=== PATIENT | male | born 1960 | race Caucasian/White ===

== ENCOUNTER 2018-07-22 20:14 | Emergency (ER) | payer MEDICARE, OTHER ==
[~2018-07-22] VITALS: Ht 177.8 cm; Wt 131.5 kg
[~2018-07-22 20:14] MED LIST: ACET500; ALBU90OI6 INH; AMOCLA875; CEPH500 PO; CLOT1TC; CYCL10 PO; DESCOVY 200-251 EACH PO; GABA300 PO; GABA600 PO; IBUP600 PO; INSULANPEN SC; LISI20; LISI5 PO; METF500C; METF500C PO; METO25ER PO; METO50ER PO; NICO14TP; NICO7; Novolog100 UNIT/2; Novolog100 UNIT/2 SC; OXYB5 PO; OXYC5 PO; PARO20; PREZCOBIX 8001 EACH PO; Pyridium200 MG PO; TIVICAY50 MG PO; Tobrex5 ML; Tylenol325 MG PO; VENL150ER PO; [UNRECOGNIZED DRUG - CODE]
== END 2018-07-23 00:54 | disposition home or self-care (01) ==
LOC: ER 20:14
DX: S06.9X1A Unspecified intracranial injury with loss of consciousness of 30 minutes or less, initial encounter (principal); S40.011A Contusion of right shoulder, initial encounter; Z89.512 Acquired absence of left leg below knee; W05.0XXA Fall from non-moving wheelchair, initial encounter; Z88.8 Allergy status to other drugs, medicaments and biological substances; Z79.899 Other long term (current) drug therapy; Z79.4 Long term (current) use of insulin; E11.9 Type 2 diabetes mellitus without complications; B20 Human immunodeficiency virus [HIV] disease; F31.9 Bipolar disorder, unspecified; F17.210 Nicotine dependence, cigarettes, uncomplicated
CPT/HCPCS: 36415; 70450; 71046; 72125; 73030; 96374; 99284-25; J3010

== ENCOUNTER 2018-08-13 07:01 | Emergency (ER) | payer MEDICARE, OTHER ==
[~2018-08-13] VITALS: Ht 180.3 cm; Wt 108.9 kg
[~2018-08-13 07:01] MED LIST changes: +EXTRA STRENGTH500 MG PO; -Tylenol325 MG PO
[2018-08-13 08:21] LABS: Bilirubin, Urine Neg (Neg); Blood, Urine Neg (Neg); Glucose Qualitative, Urine Neg (Neg); Ketones, Urine Neg (Neg); Leukocyte Esterase, Urine Neg (Neg); Nitrite, Urine Neg (Neg); Protein, Urine Neg (Neg); Specific Gravity, Urine 1.015 (1.003-1.022); Urobilinogen, Urine NORM (Normal)
[2018-08-13 08:36] LABS: U Amphetamine Screen Not Detected; U Barbituate Screen Not Detected; U Benzodiazapine Screen Not Detected; U Buprenorphine Screen Not Detected; U Cannabinoids Screen DETECTED; U Cocaine Screen Not Detected; U Methadone Screen Not Detected; U Methamphetamine Screen DETECTED; U Opiates Screen Not Detected; U Oxycodone Screen DETECTED; U Phencyclidine Screen Not Detected; U Propoxyphene Screen Not Detected
[2018-08-13 08:36] LABS: Anion Gap 7 mmol/L (6-16); Blood Urea Nitrogen 14 mg/dL (8-24); Bun/Creatinine Ratio 28.4 (12.0-20.0); CO2, Blood 28 mmol/L (21-32); Calcium, Blood 8.6 mg/dL (8.5-10.1); Chloride, Blood 103 mmol/L (98-108); Creatinine, Blood 0.49 mg/dL (0.60-1.20); Glomerular Filtration Rate >60 (60-); Glucose, Blood 176 mg/dL (70-99); Potassium, Blood 5.2 mmol/L (3.5-5.5); Sodium, Blood 138 mmol/L (136-145)
[2018-08-13 08:57] LABS: Appearance, Urine Clear (Clear); Color, Urine Yellow (P-Yellow)
[2018-08-13 09:09] LABS: BASOPHILS ABSOLUTE AUTO 0.05 K/mm3 (0.00-0.23); BASOPHILS PERCENT AUTO 1 % (0-2); EOSINOPHILS ABSOLUTE AUTO 0.23 K/mm3 (0.00-0.68); EOSINOPHILS PERCENT AUTO 3 % (0-6); Hematocrit 41.8 % (37.0-53.0); Hemoglobin 13.4 g/dL (13.5-17.5); IMMATURE GRAN ABSOLUTE AUTO 0.08 K/mm3 (0.00-0.10); IMMATURE GRAN PERCENT AUTO 1 % (0-1); LYMPHOCYTES ABSOLUTE AUTO 0.77 K/mm3 (0.84-5.20); LYMPHOCYTES PERCENT AUTO 11 % (21-46); MONOCYTES ABSOLUTE AUTO 0.55 K/mm3 (0.16-1.47); MONOCYTES PERCENT AUTO 8 % (4-13); Mean Corpuscular HGB Conc 32.1 g/dL (31.5-36.5); Mean Corpuscular Volume 100 fL (80-100); Mean Platelet Volume 9.3 fL (9.1-12.4); NEUTROPHILS ABSOLUTE AUTO 5.58 K/mm3 (1.96-9.15); NEUTROPHILS PERCENT AUTO 77 % (41-73); Platelet Count 204 K/mm3 (150-400); RDW Coefficient Variation 12.2 % (11.7-14.2); RDW Standard Deviation 45.1 fL (35.1-46.3); Red Blood Cell Count 4.19 M/mm3 (4.30-5.90); White Blood Cell Count 7.26 K/mm3 (4.00-11.30)
[2018-08-13] MEDS ORDERED: XARELTO15 MG PO (09:28)
[2018-08-14] MEDS ORDERED: LORA1SY PO (07:35)
[2018-08-14] MEDS ORDERED: NICO21TP (07:36)
[2018-08-14] MEDS ORDERED: NICO2 PO (07:37)
[2018-08-14] MEDS ORDERED: LOPE2C PO (07:37)
[2018-08-14] MEDS ORDERED: XARELTO20 MG PO (23:32)
[2018-08-14] MEDS ORDERED: IBUP600 PO (23:38)
== END 2018-08-13 11:47 | disposition home or self-care (01) ==
LOC: ER 07:01
PROVIDERS: Emergency Medicine
DX: I82.432 Acute embolism and thrombosis of left popliteal vein (principal); F15.10 Other stimulant abuse, uncomplicated; Z89.512 Acquired absence of left leg below knee; E11.22 Type 2 diabetes mellitus with diabetic chronic kidney disease; I12.9 Hypertensive chronic kidney disease with stage 1 through stage 4 chronic kidney disease, or unspecified chronic kidney disease; N18.9 Chronic kidney disease, unspecified; Z88.8 Allergy status to other drugs, medicaments and biological substances; Z79.899 Other long term (current) drug therapy; Z79.4 Long term (current) use of insulin; B20 Human immunodeficiency virus [HIV] disease; F31.9 Bipolar disorder, unspecified
CPT/HCPCS: 36415; 71045; 80048; 81003; 85025; 93005; 93010; 93971; 96361; 96374; 99285-25; G0480; J1885; J7030

== ENCOUNTER 2018-08-14 07:16 | Emergency (ER) | payer MEDICARE, OTHER ==
[~2018-08-14] VITALS: Ht 180.3 cm; Wt 127.0 kg
[~2018-08-14 07:16] MED LIST changes: +XARELTO15 MG PO
[2018-08-14] MEDS ORDERED: LORA1SY PO (07:35)
[2018-08-14] MEDS ORDERED: NICO21TP (07:36)
[2018-08-14] MEDS ORDERED: LOPE2C PO (07:37)
[2018-08-14] MEDS ORDERED: NICO2 PO (07:37)
[2018-08-14] MEDS ORDERED: XARELTO20 MG PO (23:32)
[2018-08-14] MEDS ORDERED: IBUP600 PO (23:38)
== END 2018-08-14 11:41 | disposition home or self-care (01) ==
LOC: ER 07:16
DX: S09.90XA Unspecified injury of head, initial encounter (principal); M54.2 Cervicalgia; M54.9 Dorsalgia, unspecified; E11.9 Type 2 diabetes mellitus without complications; I10 Essential (primary) hypertension; F31.9 Bipolar disorder, unspecified; Z21 Asymptomatic human immunodeficiency virus [HIV] infection status; Z89.512 Acquired absence of left leg below knee; Z79.4 Long term (current) use of insulin; Z79.899 Other long term (current) drug therapy; W06.XXXA Fall from bed, initial encounter
CPT/HCPCS: 70450; 72070; 72125; 99284-25

== ENCOUNTER 2018-08-14 15:38 | Inpatient (IN) | payer MEDICARE, OTHER ==
[~2018-08-14] VITALS: Ht 180.3 cm; Wt 129.8 kg
[~2018-08-14 15:38] MED LIST changes: +LOPE2C PO; +LORA1SY PO; +NICO2 PO; +NICO21TP
[2018-08-14 17:25] LABS: PCO2 Arterial 38.2 mmHg (35-45); PO2 Arterial 53.3 mmHg (80-100); pH Blood Arterial 7.49 (7.35-7.45)
[2018-08-14 17:37] LABS: Influenza A Negative (NEGATIVE); Influenza B Negative (NEGATIVE)
[2018-08-14 17:46] LABS: BASOPHILS ABSOLUTE AUTO 0.04 K/mm3 (0.00-0.23); BASOPHILS PERCENT AUTO 0 % (0-2); EOSINOPHILS ABSOLUTE AUTO 0.01 K/mm3 (0.00-0.68); EOSINOPHILS PERCENT AUTO 0 % (0-6); Hematocrit 46.2 % (37.0-53.0); Hemoglobin 15.1 g/dL (13.5-17.5); IMMATURE GRAN ABSOLUTE AUTO 0.07 K/mm3 (0.00-0.10); IMMATURE GRAN PERCENT AUTO 1 % (0-1); LYMPHOCYTES ABSOLUTE AUTO 0.51 K/mm3 (0.84-5.20); LYMPHOCYTES PERCENT AUTO 6 % (21-46); MONOCYTES ABSOLUTE AUTO 0.47 K/mm3 (0.16-1.47); MONOCYTES PERCENT AUTO 5 % (4-13); Mean Corpuscular HGB 32.1 pg (26.0-34.0); Mean Corpuscular HGB Conc 32.7 g/dL (31.5-36.5); Mean Corpuscular Volume 98 fL (80-100); Mean Platelet Volume 9.4 fL (9.1-12.4); NEUTROPHILS ABSOLUTE AUTO 8.13 K/mm3 (1.96-9.15); NEUTROPHILS PERCENT AUTO 88 % (41-73); Platelet Count 222 K/mm3 (150-400); RDW Coefficient Variation 12.2 % (11.7-14.2); RDW Standard Deviation 44.3 fL (35.1-46.3); White Blood Cell Count 9.23 K/mm3 (4.00-11.30)
[2018-08-14 18:10] LABS: Alanine Aminotransfer (ALT/SGP 45 U/L (12-78); Albumin, Blood 3.5 g/dL (3.4-5.0); Albumin/Globulin Ratio 0.8 (0.8-1.8); Alk Phos 88 U/L (50-136); Anion Gap 9 mmol/L (6-16); Aspartate Aminotrans (AST/SGOT 30 U/L (12-37); Bilirubin, Total 0.3 mg/dL (0.1-1.0); Blood Urea Nitrogen 8 mg/dL (8-24); Bun/Creatinine Ratio 14.6 (12.0-20.0); CO2, Blood 24 mmol/L (21-32); Calcium, Blood 8.7 mg/dL (8.5-10.1); Chloride, Blood 100 mmol/L (98-108); Creatinine, Blood 0.55 mg/dL (0.60-1.20); Globulin, Blood 4.6 g/dL (2.2-4.0); Glomerular Filtration Rate >60 (60-); Glucose, Blood 170 mg/dL (70-99); Potassium, Blood 4.1 mmol/L (3.5-5.5); Sodium, Blood 133 mmol/L (136-145); Total Protein, Blood 8.1 g/dL (6.4-8.2); Troponin I <0.015 ng/mL (0.000-0.040)
--- NOTE | 2018-08-14 20:45 | NUR ---
ADMIT RECEIVED FROM ER VIA [facility]. AWAKE AND ALERT. PT IS ABLE TO MOVE SELF FROM GURNEY TO BED WITHOUT DIFFICULTY. DYSPNEA NOTED WITH EXERTION. O2 @ 4LNC. OCCASIONAL NPC. C/O CONGESTED NOSE D/T OXYGEN. PT C/O 8/10 HEADACHE AND LEG PAIN AND IS REQUESTING OXYCODONE. INFORMED PT THAT OXYCODONE WAS NOT ORDERED BY MD AND HE IS AGREEABLE TO TRY MOTRIN FOR HIS PAIN. MONITOR SHOWS ST, RATE 110-120. LBKA AMPUTATION NOTED. RIGHT GREAT TOE AMPUTATION NOTED. ABDOMEN MODERATELY DISTENDED AND FIRM- PT STATES THIS IS NORMAL FOR HIM. DENIES NAUSEA. SKIN IS REDDENED/FLUSHED T/O. PLAN IS TO PLACE A #18 IV FOR NEEDED PE STUDY. SEE ADMIT ASSESSMENT FOR FULL ASSESSMENT.
[2018-08-14] MEDS ORDERED: XARELTO20 MG PO (23:32)
[2018-08-14] MEDS ORDERED: IBUP600 PO (23:38)
--- NOTE | 2018-08-15 05:52 | NUR ---
SHIFT SUMMARY NO ACUTE CHANGES DURING NOC. SLEPT INTERMITTENTLY. ROUSES TO STIMULI. CONTINUES TO C/O HEADACHE AND LEG PAIN. STATES "MOTRIN HELPED A LITTLE" BUT STILL REQUESTING OXYCODONE. REMAINS ON 4LNC. RESPIRATIONS EVEN AND UNLABORED AT REST. VOIDING WITHOUT DIFFICULTY. NO AM LABS ORDERED. WILL REPORT TO DAY SHIFT RN WHEN AVAILABLE.
--- NOTE | 2018-08-15 08:00 | NUR ---
PT LAYING IN BED ON HIS SIDE, WAKES EASILY, A/OX3, COOPERATIVE WITH CARE, FOLLOWS COMMANDS WELL. STATES HE DOESN'T FEEL GOOD THIS AM, BUT CAN'T REALLY SAY WHATS GOING ON, HE SAYS HIS LOW BACK HURTS AND NEEDS PAIN MEDS, LUNGS HAVE EXP WHEEZING T/O, HAS A HARSH COUGH, IS CURRENTLY ON 4 LITERS 02 BUT HAS IT ON HIS FORHEAD, BECOMES SOB WITH ANY ACTIVITY, HRR, TELE IN PLACE SHOWS ST PER MONITOR, SEE STRIP, NO EDEMA NOTED, PPP+2 ON RIGHT SIDE, BKA TO LEFT SIDE, IV SITES TO RAC AND RWRIST, SITES ARE CLEAR AND PATENT, BTX4, ABD LARGE SOFT NONTENDER, VOIDS VIA URINAL, IS HAVING SOME LOOSE STOOLS, AND SOME INCONT OF STOOL, SKIN C/W/D, SUSHMA DSOUZA, CALL LIGHT IN REACH.
[2018-08-15 09:14] LABS: Adenovirus F 40/41 Not Detected (NOT DETECT); Astrovirus Not Detected (NOT DETECT); Campylobacter Sp Not Detected (NOT DETECT); Cryptosporidium Not Detected (NOT DETECT); Cyclospora Cayetanensis Not Detected (NOT DETECT); E. Coli O157 Not Detected (NOT DETECT); Entamoeba Histolytica Not Detected (NOT DETECT); Enteroaggregative E. coli-EAEC Not Detected (NOT DETECT); Enteropathogenic E. coli-EPEC Not Detected (NOT DETECT); Enterotoxigenic E. coli-ETEC Not Detected (NOT DETECT); Giardia Lamblia Not Detected (NOT DETECT); Norovirus GI/GII Not Detected (NOT DETECT); Plesiomonas Shigelloides Not Detected (NOT DETECT); Rotavirus A Not Detected (NOT DETECT); Salmonella Sp Not Detected (NOT DETECT); Sapovirus Not Detected (NOT DETECT); Shiga Toxin-prod E. coli-STEC Not Detected (NOT DETECT); Shigella/Enteroin E. coli-EIEC Not Detected (NOT DETECT); Vibrio Cholerae Not Detected (NOT DETECT); Vibrio Sp Not Detected (NOT DETECT); Yersinia Enterocolitica Not Detected (NOT DETECT)
--- NOTE | 2018-08-15 12:50 | NUR ---
PT AFFECT IS MUCH BETTER, B/P IS BETTER. PT HAS A HUGE APPETITE, NO OTHER COMPLAINTS OR NEEDS AT THIS TIME. CALL LIGHT IN REACH.
--- NOTE | 2018-08-15 13:00 | NUR ---
ASSUMED CARE AT 1300. INTRODUCED SELF TO PT.
--- NOTE | 2018-08-15 19:24 | NUR ---
PT PLEASANT TODAY. PAIN MOSTLY MANAGED WITH AVAIL MEDS. TALKED SOME ABOUT HIS PAST EMPLOY AT [employer] IN [place]. NO OTHER CONCERNS AT THIS TIME. BED IN LOW POSITION, CALL LITE IN REACH. CALLS APPROP
[2018-08-16 04:27] LABS: Anion Gap 7 mmol/L (6-16); Blood Urea Nitrogen 30 mg/dL (8-24); Bun/Creatinine Ratio 42.2 (12.0-20.0); CO2, Blood 30 mmol/L (21-32); Calcium, Blood 8.5 mg/dL (8.5-10.1); Chloride, Blood 98 mmol/L (98-108); Creatinine, Blood 0.71 mg/dL (0.60-1.20); Glomerular Filtration Rate >60 (60-); Glucose, Blood 259 mg/dL (70-99); Potassium, Blood 4.1 mmol/L (3.5-5.5); Sodium, Blood 135 mmol/L (136-145)
--- NOTE | 2018-08-16 06:00 | NUR ---
SHIFT SUMMARY PT A&O X4, CALM AND COOPERATIVE. PT STATES HEADACHE AND L LEG PAIN DURING NIGHT. PT REQUEST FOR PAIN MEDICATION PRIOR TO ADMINISTRATION TIME ALLOWANCE. PT THEN UPSET PAIN MED NOT GIVEN AT TIME OF ALLOWANCE BECAUSE PT WAS SLEEPING. MED GIVEN TO PT ONCE AWAKE. OTHERWISE SHIFT UNEVENTFUL. VSS. LUNG SOUNDS COARSE W/ EXP WHEEZE T/O. SPO2 > 92% ON 3.5L NC. MONITOR SHOWS NSR, HR 80-100. WILL CONTINUE TO MONITOR AND PROVIDE CARE UNTIL REPORT OFF TO DAY SHIFT RN.
--- NOTE | 2018-08-16 08:00 | NUR ---
PT LAYING IN BED EATING BREAKFAST WHILE LAYING, EXPLAINED MIGHT BE BETTER TO SIT UP, HE SAYS HE CAN EAT AND TAKE PO MEDS FINE LIKE HE IS. A/OX3, COOPERATIVE WITH CARE, IS IN BETTER MOOD THAN YESTERDAY AM. LUNGS HAVE EXP WHEEZING T/O, A BIT COURSE AND DIM IN BASES, RESP EVEN AND UNLABORED, OCC NONPRODUCTIVE COUGH, HE MAY BE SWALLOWING, IS CURRENTLY ON 3.5 LITERS 02 VIA N/C, HRR, TELE IN PLACE RUNNING SR TO ST PER MONITOR, SEE STRIP, TRACE EDEMA NOTED TO RIGHT FOOT, LEFT BKA WITH DRESSING ON STUMP, WILL CHANGE THAT TODAY, IV TO LEFT WRIST AND LEFT AC BOTH SITES ARE CLEAR AND PATENT, BTX4, ABD LARGE SOFT NONTENDER, WAS HAVING LOOSE STOOLS, SAMPLE WAS SENT, CAME BACK NEG, WAS STARTED ON SOME THINGS FOR IT, AND HE REPORTS IT HAS SLOWED, VOIDS VIA URINAL, SKIN C/W/D, EXCEPT WOUND TO STUMP NOTED ABOVE, MEET, ABLE TO STAND ON GOOD LEG TO TRANSFER, MOVES HIMSELF IN BED, SUSHMA, CALL LIGHT IN REACH.
--- NOTE | 2018-08-16 12:56 | NUR ---
pt glucose over 300, was treated with insulin as ordered, sleepy, b/p much lower than yesterday. no further needs at this time. call light in reach.
[2018-08-17 04:24] LABS: BASOPHILS ABSOLUTE AUTO 0.04 K/mm3 (0.00-0.23); BASOPHILS PERCENT AUTO 0 % (0-2); EOSINOPHILS ABSOLUTE AUTO 0.16 K/mm3 (0.00-0.68); EOSINOPHILS PERCENT AUTO 2 % (0-6); Hematocrit 45.2 % (37.0-53.0); Hemoglobin 14.5 g/dL (13.5-17.5); IMMATURE GRAN ABSOLUTE AUTO 0.11 K/mm3 (0.00-0.10); IMMATURE GRAN PERCENT AUTO 1 % (0-1); LYMPHOCYTES ABSOLUTE AUTO 1.37 K/mm3 (0.84-5.20); LYMPHOCYTES PERCENT AUTO 14 % (21-46); MONOCYTES ABSOLUTE AUTO 0.94 K/mm3 (0.16-1.47); MONOCYTES PERCENT AUTO 9 % (4-13); Mean Corpuscular HGB 31.8 pg (26.0-34.0); Mean Corpuscular HGB Conc 32.1 g/dL (31.5-36.5); Mean Corpuscular Volume 99 fL (80-100); Mean Platelet Volume 9.6 fL (9.1-12.4); NEUTROPHILS ABSOLUTE AUTO 7.44 K/mm3 (1.96-9.15); NEUTROPHILS PERCENT AUTO 74 % (41-73); Platelet Count 287 K/mm3 (150-400); RDW Coefficient Variation 12.2 % (11.7-14.2); RDW Standard Deviation 44.8 fL (35.1-46.3); Red Blood Cell Count 4.56 M/mm3 (4.30-5.90); White Blood Cell Count 10.06 K/mm3 (4.00-11.30)
[2018-08-17 04:44] LABS: Anion Gap 6 mmol/L (6-16); Blood Urea Nitrogen 33 mg/dL (8-24); Bun/Creatinine Ratio 50.7 (12.0-20.0); CO2, Blood 28 mmol/L (21-32); Calcium, Blood 8.8 mg/dL (8.5-10.1); Chloride, Blood 99 mmol/L (98-108); Creatinine, Blood 0.65 mg/dL (0.60-1.20); Glomerular Filtration Rate >60 (60-); Glucose, Blood 180 mg/dL (70-99); Potassium, Blood 4.4 mmol/L (3.5-5.5); Sodium, Blood 133 mmol/L (136-145)
--- NOTE | 2018-08-17 06:12 | NUR ---
SHIFT SUMMARY PT SLEEPING IN ROOM. WAKES EASILY W/ VERBAL. PT HAD NO ACUTE CHANGES T/O NIGHT. SLEPT WELL. RESP EVEN UNLABORED ON 3.5 L O2 SATS >92%. PT REQUESTED LOTS OF SNACKS AND FOOD AT START OF SHIFT. CBG WAS HIGH AT 306. PT WAS EDUCATED ON EFFECT OF SUGARY SNACKS ON HIGH BLOOD SUGAR. PT WAS UNINTERSTED IN EDUCATION BUT AGREED TO LOW SUGAR SNACKS AND WATER INSTEAD OF A MILKSHAKE. CALL LIGHT IN REACH.
--- NOTE | 2018-08-17 08:00 | NUR ---
pt laying in bed awake a/ox3, cooperative with care, follows commands well, states he doesn't feel good, but can't elaborate, states he has low back pain, lungs still have exp wheezing t/o, but seems less than yesterday, weaned 02 down to 1.5 liters, and is maintaining, resp even and unlabored, has occ nonproductive cough, hrr, tele in place running sr per monitor, see strip, no edema noted to rigth foot, left bka, iv to rac and right wrist, sites are clear and patent, btx4, abd large round soft nontender, voids without diff, via urinal, skin has very small sore to left stump, dressing in place, hector kwong call light in reach.
--- NOTE | 2018-08-17 12:46 | NUR ---
pt laying in bed, vs stable, he is on r/a at this time, sats 93-94%, wants a pain pill, rates pain in low back 02/12, this was given, no further changes or needs, call light in reach.
--- NOTE | 2018-08-17 13:15 | NUR ---
PT RESTING WATCHING TV. TALKATIVE. STATES PAIN IMPROVED. ORDERED SANDWICH PRIOR, WANTS TO KNOW WHERE IS. REORDERED
--- NOTE | 2018-08-17 18:16 | NUR ---
PT PLEASANT THIS AFT AND GAVIN. EXTRA FOOD ORDERED LUNCH AND DINNER. DISCUSSED HIGH CBG AND RELATIONSHIP WITH EXTRA FLOUR BASED FOOD INTAKE. ALSO REQUESTS FOR MULTIPLE JUICES. AND RELATIONSHIP WITH SUGARS. HE STATES UNDERSTANDING. PAIN MED GIVEN MIDDAY. STATES BROUGHT TO COMFORTABLE/TOLERABLE LEVEL. NO OTHER CONCERNS AT THIS TIME. BED IN LOW POSITION, CALL LITE IN REACH, CALLS APPROP
--- NOTE | 2018-08-18 06:07 | NUR ---
SHIFT SUMMARY PT ALERT AND ORIENTED. VS STABLE. O2 SATS HAVE REMAINED ABOVE 92% ON RA. PT DOES HAVE SOB WITH EXERTION. PT COMPLAINS OF CHRONIC PAIN IN HIS BACK AND LEGS. PAIN RELIEVED AFTER MEDICATION ADMINISTRATION. PT EDUCATED ABOUT DIABETIC DIET AND IMPORTANCE OF IMPROVING BLOOD SUGARS. PT NOT INTERESTED IN EDUCATION. PT ABLE TO TRANSFER TO [facility] WITH SBA NEEDED. NO OTHER CHANGES SINCE INITIAL ASSESSMENT. WILL CONTINUE TO MONITOR AND REPORT TO MEDICAL FLOOR RN. CALL LIGHT IN REACH. AWAITING TRANSFER.
[2018-08-18] MEDS ORDERED: AZIT250 PO (10:35)
[2018-08-18] MEDS ORDERED: PRED10 (10:36)
--- NOTE | 2018-08-18 15:24 | NUR ---
PLEASE SEND UP DINNER MENU. THANK YOU
--- NOTE | 2018-08-18 18:20 | NUR ---
SHIFT SUMMARY: NO ACUTE CHANGES TO REPORT THIS SHIFT. PT A&O; CALM AND COOPERATIVE WITH CARE. MEDICATED FOR PAIN PER EMAR. DISCHARGE TO [facility] ON SUNDAY, 08/19. WCTM.
--- NOTE | 2018-08-19 06:25 | NUR ---
SHIFT SUMMARY PT A&0X4. MEDICATED PAIN PER EMAR. SLEPT WELL T/O SHIFT. NO ACUTE CHANGES TO REPORT. WILL CONTINUE TO MONITOR.
--- NOTE | 2018-08-19 09:30 | NUR ---
PT PLEASANT A/O STATES SOME PAIN IN BACK AND LEG. MED PER EMAR. H/R REG, NO MURMER NOTED. NO TELE. LUNGS COARSE AND LITE EXP WHEEZES T/O. ON R/A. RESP EASY, UNLBORED. ABD LARGE FIRM, BT X4 PT STATES NORM ABD FOR HIM. LAST BM YEST. VOIDS PER URINAL. SBA TO BSC. L BKA. SMALL ABRASION ON STUMP. COVERED WITH MEPILEX, CDI.,BED IN LOW POSITION, CALL LITE IN REACH, CALLS APPROP AND REG.
--- NOTE | 2018-08-19 17:36 | NUR ---
d/c 1650 iv pulled intact. home meds for hiv handed to pt. going to [facility]. called report to bobo. 1730.
[2018-08-20] MEDS ORDERED: SACC250C (02:06)
[2018-08-20] MEDS ORDERED: FUROSEMIDE40 MG/4 ML PO (02:07)
[2018-08-20] MEDS ORDERED: POTCHL10ER PO (02:08)
[2018-08-20] MEDS ORDERED: POLY500 PO (02:09)
== END 2018-08-19 17:27 | DRG 189 ==
LOC: ER 15:38 → PCU 18:35 → MEDS 18:35 → PCU 20:52 → MEDS 08-18 06:28 → EDPENDDIS 08-18 09:30 → ENPENDDIS 08-18 09:30 → MEDS 08-19 17:27
PROVIDERS: Emergency Medicine; Hospitalist; ADMIT Internal Medicine
DX: J96.01 Acute respiratory failure with hypoxia (principal); J44.1 Chronic obstructive pulmonary disease with (acute) exacerbation; E87.1 Hypo-osmolality and hyponatremia; E11.40 Type 2 diabetes mellitus with diabetic neuropathy, unspecified; E66.01 Morbid (severe) obesity due to excess calories; F31.9 Bipolar disorder, unspecified; I10 Essential (primary) hypertension; F15.10 Other stimulant abuse, uncomplicated; R00.0 Tachycardia, unspecified; Z21 Asymptomatic human immunodeficiency virus [HIV] infection status; Z87.891 Personal history of nicotine dependence; Z92.29 Personal history of other drug therapy; Z79.4 Long term (current) use of insulin; Z86.718 Personal history of other venous thrombosis and embolism; Z79.01 Long term (current) use of anticoagulants; Z98.890 Other specified postprocedural states; Z89.512 Acquired absence of left leg below knee; Z89.411 Acquired absence of right great toe; Z86.19 Personal history of other infectious and parasitic diseases
CPT/HCPCS: 36415; 36600; 71046; 71260; 80048; 80053; 82803; 82947; 83880; 84484; 85025; 87081; 87507; 87804; 93005; 93010; 94644; 99285-25; J1940; Q9967

== ENCOUNTER 2018-08-19 22:24 | Observation (INO) | payer MEDICARE, OTHER ==
[~2018-08-19] VITALS: Ht 180.3 cm; Wt 131.5 kg
[~2018-08-19 22:24] MED LIST changes: +AZIT250 PO; +PRED10; +XARELTO20 MG PO
[2018-08-19 23:04] LABS: BASOPHILS ABSOLUTE AUTO 0.04 K/mm3 (0.00-0.23); BASOPHILS PERCENT AUTO 0 % (0-2); EOSINOPHILS ABSOLUTE AUTO 0.01 K/mm3 (0.00-0.68); EOSINOPHILS PERCENT AUTO 0 % (0-6); Hematocrit 49.9 % (37.0-53.0); Hemoglobin 16.5 g/dL (13.5-17.5); IMMATURE GRAN ABSOLUTE AUTO 0.18 K/mm3 (0.00-0.10); IMMATURE GRAN PERCENT AUTO 1 % (0-1); LYMPHOCYTES ABSOLUTE AUTO 1.81 K/mm3 (0.84-5.20); LYMPHOCYTES PERCENT AUTO 12 % (21-46); MONOCYTES ABSOLUTE AUTO 0.89 K/mm3 (0.16-1.47); MONOCYTES PERCENT AUTO 6 % (4-13); Mean Corpuscular HGB 32.2 pg (26.0-34.0); Mean Corpuscular HGB Conc 33.1 g/dL (31.5-36.5); Mean Corpuscular Volume 97 fL (80-100); Mean Platelet Volume 9.5 fL (9.1-12.4); NEUTROPHILS ABSOLUTE AUTO 11.77 K/mm3 (1.96-9.15); NEUTROPHILS PERCENT AUTO 80 % (41-73); Platelet Count 371 K/mm3 (150-400); RDW Coefficient Variation 12.2 % (11.7-14.2); RDW Standard Deviation 44.1 fL (35.1-46.3); Red Blood Cell Count 5.13 M/mm3 (4.30-5.90)
[2018-08-19 23:22] LABS: Alanine Aminotransfer (ALT/SGP 69 U/L (12-78); Albumin, Blood 3.7 g/dL (3.4-5.0); Albumin/Globulin Ratio 0.8 (0.8-1.8); Alk Phos 102 U/L (50-136); Anion Gap 10 mmol/L (6-16); Aspartate Aminotrans (AST/SGOT 31 U/L (12-37); Bilirubin, Total 0.3 mg/dL (0.1-1.0); Blood Urea Nitrogen 34 mg/dL (8-24); Bun/Creatinine Ratio 44.3 (12.0-20.0); CO2, Blood 28 mmol/L (21-32); Chloride, Blood 98 mmol/L (98-108); Creatinine, Blood 0.77 mg/dL (0.60-1.20); Globulin, Blood 4.7 g/dL (2.2-4.0); Glomerular Filtration Rate >60 (60-); Glucose, Blood 340 mg/dL (70-99); Potassium, Blood 5.1 mmol/L (3.5-5.5); Sodium, Blood 136 mmol/L (136-145); Total Protein, Blood 8.4 g/dL (6.4-8.2)
[2018-08-20 00:08] LABS: pH Blood Arterial 7.37 (7.35-7.45)
[2018-08-20 00:09] LABS: PCO2 Arterial 49.9 mmHg (35-45); PO2 Arterial 200 mmHg (80-100)
--- NOTE | 2018-08-20 01:35 | NUR ---
ED ADMIT VIA [facility]. PIVIT OVER TO BED FROM [facility]. LT BKA.TINY ABRASION NOTED ON STUMP AND REPORTS PT SHEARED IT AGAINST A CHAIR YESTERDAY.MEPILEX REMOVED AND PHOTO AND NEW PLACED. NO DRAINAGE. EXERTIONAL SOB NOTED AND RECOVERS QUICKLY. DENIES PAIN. COUGHING AND LOOSE NONE EXPECTORATED. NO AUD WHEEZES BUT T/O AUSCULTATED.VERY COARSE T/O FEW CRACKLES BASES. TALKATIVE. CALM JOKING. NO ACUTE RESP EFFORT NEED.RA SAT 89-92% PLACED ON 2L. SIPS DIET POP/ RT EYE LID SEEMS TO DROOP A LITTLE. PER HX.NO S/S OF NOSE BLEED. MRSA CLEARANCE SENT NARES / THROAT/ DRIED ABRASION LT STUMP/ OFF TO SLEEP W/O BREATHING IMPAIRMENT
[2018-08-20] MEDS ORDERED: SACC250C (02:06)
[2018-08-20] MEDS ORDERED: FUROSEMIDE40 MG/4 ML PO (02:07)
[2018-08-20] MEDS ORDERED: POTCHL10ER PO (02:08)
[2018-08-20] MEDS ORDERED: POLY500 PO (02:09)
[2018-08-20 02:38] LABS: Hematocrit 49.1 % (37.0-53.0); Hemoglobin 15.7 g/dL (13.5-17.5); Mean Corpuscular HGB 32.8 pg (26.0-34.0); Mean Platelet Volume 9.5 fL (9.1-12.4); Platelet Count 280 K/mm3 (150-400); RDW Coefficient Variation 12.3 % (11.7-14.2); RDW Standard Deviation 46.8 fL (35.1-46.3); Red Blood Cell Count 4.79 M/mm3 (4.30-5.90); White Blood Cell Count 15.99 K/mm3 (4.00-11.30)
[2018-08-20 02:39] LABS: Mean Corpuscular Volume 103 fL (80-100)
[2018-08-20 02:56] LABS: Alanine Aminotransfer (ALT/SGP 60 U/L (12-78); Albumin, Blood 3.4 g/dL (3.4-5.0); Albumin/Globulin Ratio 0.8 (0.8-1.8); Alk Phos 88 U/L (50-136); Anion Gap 9 mmol/L (6-16); Aspartate Aminotrans (AST/SGOT 25 U/L (12-37); Bilirubin, Total 0.1 mg/dL (0.1-1.0); Blood Urea Nitrogen 31 mg/dL (8-24); Bun/Creatinine Ratio 48.9 (12.0-20.0); CO2, Blood 24 mmol/L (21-32); Calcium, Blood 8.5 mg/dL (8.5-10.1); Chloride, Blood 100 mmol/L (98-108); Creatinine, Blood 0.63 mg/dL (0.60-1.20); Globulin, Blood 4.3 g/dL (2.2-4.0); Glomerular Filtration Rate >60 (60-); Glucose, Blood 147 mg/dL (70-99); Potassium, Blood 4.3 mmol/L (3.5-5.5); Sodium, Blood 133 mmol/L (136-145); Total Protein, Blood 7.7 g/dL (6.4-8.2)
--- NOTE | 2018-08-20 06:00 | NUR ---
SHIFT SUMMARY. REPORTS POST REVIEWING POL W/ PT HE HAS CHANGED TO FULL CODE NOW AND THIS IS REFLECTED ON THE MD ORDERS. PLACED CALL TO DR GNADARA AT 0230 WHEN LACTIC ACID RESULT CAME BACK . NO RETURN CALL FROM MD , LEFT VOICE MESSAGE. SLEPT WELL AND LEFT ON 2L TO SLEEP. MENTATION CLEAR WHEN AWAKE. DENIES ANY DISCOMFORT. MOIST HACKY COUGH. NO SPUTUM AT THIS TIME. SR
--- NOTE | 2018-08-20 08:45 | NUR ---
initial assessment: Pt dowsing in bed. Wakes to verbal stimulus. LS very course whith wheezing. Bt poisitive. HR reg/tachy in NSR 90-110. Pt states that he has generalized pain and rates it a 8/10. Will treat per orders. VSS. Pt is diapheretic but states that he is feeling ok. Will monitor of changes and treat.
[2018-08-20 11:47] LABS: U Amphetamine Screen Not Detected; U Barbituate Screen Not Detected; U Benzodiazapine Screen Not Detected; U Buprenorphine Screen Not Detected; U Cannabinoids Screen DETECTED; U Cocaine Screen Not Detected; U Methadone Screen Not Detected; U Methamphetamine Screen Not Detected; U Opiates Screen Not Detected; U Oxycodone Screen DETECTED; U Phencyclidine Screen Not Detected; U Propoxyphene Screen Not Detected
--- NOTE | 2018-08-20 11:52 | NUR ---
Spiritual care visit conducted. Patient did not show evidence of wanting a lengthy conversation. I was brief as I explored his mosque belief system. Patient said that he had "a lot of closed doors and that he had been the one closing them." He then referenced his housing struggle but did not give any details. He was short in his answers but he did agree to allow me to pray for him. I did so and he thanked me for the prayer. There was no noticible signs in his emotional or spiritual disposition.
--- NOTE | 2018-08-20 20:09 | NUR ---
shift summary: Pt sitting up in bed watching TV and finishing his 2nd tray. Pt VS have been stable throughout shift. HR has remained NSR. Pt has been on 1L NC and has been able to maintain biox >90%. Pt LS have improved and does not seem to be as coarse. Pt states that he is feeling pretty good. Pt has been requesting food throughout the shift. Informed him that all the food being requested was not within his diet and slightly explained a carb/calorie count diet. Pt states "I'll talk to the camper assembler". Tuber Machine Operator was ordered. Pt was however calling different hospital numbers trying to get ahold of the camper assembler and did leave a message with the dietary suppervisor. improvement rn informed the Pt that this was inappropriate to call random numbers to try to find the dieticain and that a camper assembler will be in to see him tomorrow. Pt became upset and stated "I eat whatever I want at home and I am going to eat what I want here!" Pt also requested to speek to a circulation supervisor. Clinical coordinator went in and talked to patient, this seemed to help slightly. At dinner time the pt requested a 2nd tray with specific food that was not within his diet. Informed him of this and he asked "what can I have then?" Asked dietary to send 2nd tray with food that would keep pt within his dietary restrictions which they did. Pt was very pleased with his tray of food and stated that "this is better then what I ordered!" Pt has medically done well this shift and report was given to night rn.
--- NOTE | 2018-08-20 20:58 | NUR ---
ASSUMED CARE OF PATIENT AT APPROXIMATELY 1915 FROM RADHA Ortega RN. PATIENT ALERT AND ORIENTED X4. PATIENT REPORTS PAIN ALL OVER AT A 6/10; MEDICATED PER EMAR BEFORE SHIFT CHANGE. PATIENT HAS CHRONIC NUMBNESS. L BKA; NO PROSTHESIS. PATIENT DENIES DIZZINESS OR NAUSEA. REPORTS APPETITE. CBG IN 300'S. WOUND TO LEFT STUMP COVERED IN DRESSING. MEDICAL NO TELE STATUS; REPORT CALLED TO ROOM [address] DENIES QUESTIONS/CONCERNS. PATIENT IS ON 1LPM VIA NC FOR OXYGEN SATURATION ABOVE 90%. PATIENT WILL TRANSFER TO MEDICAL FLOOR BY [facility]U RUFINO Dale, WITH ALL BELONGINGS VIA STRETCHER. PATIENT CURRENTLY RESTING IN BED; CALL LIGHT IN REACH; BED IN LOWEST POSISTION; BED ALARM ON; WILL CONTINUE TO MONITOR AND ASSESS UNTIL END OF SHIFT.
--- NOTE | 2018-08-21 05:12 | NUR ---
SHIFT SUMMARY PT ADMITTED FOR COPD WITH ACUTE EXACERBATION. NEEDS SPUTUM CULTURE, UNABLE TO OBTAIN DUE TO PT NOT COUGHING. FULL CODE. ADA DIET-CBG AT AC AND [id number] WITH RECOMMENDATIONS OF DIET. SCDS. ISLOATION FOR HX OF MRSA. 1L O2 VIA NC. NUMBNESS TO R LEG AT TIMES. L BKA-DRESSING CHANGED YESTERDAY A/D/I UPON TRANSFER TO MEDICAL FLOOR. 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 20G IV TO L AC. 1 PER ASSIST PER REPORT, PT DID NOT TRANSFER SO FAR THIS SHIFT. CHRONIC POPITEAL DVT. HX OF METH, MARIJUANA, AND HIV. THE PT TRANSFERED FROM ICU THIS SHIFT AND LIKELY TO RETURN BACK TO [facility] TODAY SYMPTOMS HAVE SUBSIDED. PT DID HAVE A RECENT HOSPITALIZATION FOR SAME SYMPTOMS AND WENT BACK TO [facility], BEGAN SMOKING AGAIN AND SYMPTOMS RETURNED. PT HAS NO DESIRE TO QUIT SMOKING EVER PER REPORT. PT HAS APPEARED TO SLEEP COMFORTABLY MOST OF THE NIGHT WITH NO APPARENT SIGNS OF ACUTE DISTRESS. ABLE TO MAKE NEEDS KNOWN AND CALL LIGHT IN REACH.
[2018-08-21] MEDS ORDERED: PRED10 (11:47)
--- NOTE | 2018-08-21 16:22 | NUR ---
PT TRANSPORTED BACK TO [facility] VIA W/C WITH TRANSPORT SERVICE AND IN NO ACUTE DISTRESS; ALL BELONGINGS SENT WITH PATIENT AT TIME OF DISCHARGE.
== END 2018-08-21 15:20 | disposition home or self-care (01) ==
LOC: ER 22:24 → PCU 22:25 → ERHOLD 22:25 → PCU 22:26 → ER 08-20 00:20 → ERHOLD 08-20 00:20 → PCU 08-20 01:25 → ERHOLD 08-20 01:25 → PCU 08-20 11:54 → MEDS 08-20 21:20 → ENPENDDIS 08-21 09:55 → MEDS 08-21 15:20
PROVIDERS: Emergency Medicine; Hospitalist; ADMIT Internal Medicine
DX: T17.998A Other foreign object in respiratory tract, part unspecified causing other injury, initial encounter (principal); J96.01 Acute respiratory failure with hypoxia; R04.0 Epistaxis; J44.1 Chronic obstructive pulmonary disease with (acute) exacerbation; E87.2 Acidosis; F15.90 Other stimulant use, unspecified, uncomplicated; I10 Essential (primary) hypertension; B20 Human immunodeficiency virus [HIV] disease; F32.9 Major depressive disorder, single episode, unspecified; E11.40 Type 2 diabetes mellitus with diabetic neuropathy, unspecified; F17.210 Nicotine dependence, cigarettes, uncomplicated; E11.51 Type 2 diabetes mellitus with diabetic peripheral angiopathy without gangrene; Z89.512 Acquired absence of left leg below knee; Z86.718 Personal history of other venous thrombosis and embolism; Z79.899 Other long term (current) drug therapy; Z79.4 Long term (current) use of insulin
CPT/HCPCS: 36415; 36600; 71045; 80053; 82803; 82947; 83605; 85025; 85027; 87040; 87070; 87081; 93971; 94640; 94644; 94760; 96374; 99285-25; G0378; G0480; J1170; J2930

== ENCOUNTER → 2018-08-25 | Outpatient (CLI) | payer MEDICARE, OTHER ==
[~2018-08-25] MED LIST changes: +ALBU90OI INH; +CLARITIN10 MG PO; +DIVA500ER PO; +FUROSEMIDE40 MG/4 ML PO; +Keflex500 MG PO; +POLY500 PO; +POTCHL10ER PO; +Prilosec Otc20 MG PO; +SACC250C
[2018-08-26 00:29] LABS: U Amphetamine Screen Not Detected; U Barbituate Screen Not Detected; U Benzodiazapine Screen Not Detected; U Buprenorphine Screen Not Detected; U Cannabinoids Screen DETECTED; U Cocaine Screen Not Detected; U Methadone Screen Not Detected; U Methamphetamine Screen Not Detected; U Opiates Screen Not Detected; U Oxycodone Screen DETECTED; U Phencyclidine Screen Not Detected; U Propoxyphene Screen Not Detected
== END | disposition home or self-care (01) ==
LOC: LAB RH 00:09 → EDSTATUS 08-27 08:50
DX: R30.0 Dysuria (principal)

== ENCOUNTER → 2018-09-14 | Outpatient (CLI) | payer MEDICARE, OTHER ==
[2018-09-14 12:30] LABS: U Amphetamine Screen Not Detected; U Barbituate Screen Not Detected; U Benzodiazapine Screen Not Detected; U Buprenorphine Screen Not Detected; U Cannabinoids Screen DETECTED; U Cocaine Screen Not Detected; U Methadone Screen Not Detected; U Methamphetamine Screen Not Detected; U Opiates Screen Not Detected; U Oxycodone Screen DETECTED; U Phencyclidine Screen Not Detected; U Propoxyphene Screen Not Detected
== END | disposition home or self-care (01) ==
LOC: EDSTATUS 11:05 → LAB RH 11:57
DX: Z51.81 Encounter for therapeutic drug level monitoring (principal); Z02.89 Encounter for other administrative examinations; Z79.899 Other long term (current) drug therapy

== ENCOUNTER → 2018-09-21 | Outpatient (CLI) | payer MEDICARE, OTHER ==
[2018-09-21 03:21] LABS: U Amphetamine Screen Not Detected; U Barbituate Screen Not Detected; U Benzodiazapine Screen Not Detected; U Buprenorphine Screen Not Detected; U Cannabinoids Screen DETECTED; U Cocaine Screen Not Detected; U Methadone Screen Not Detected; U Methamphetamine Screen Not Detected; U Opiates Screen Not Detected; U Oxycodone Screen DETECTED; U Phencyclidine Screen Not Detected; U Propoxyphene Screen Not Detected
== END | disposition home or self-care (01) ==
LOC: LAB RH → EDSTATUS 11:18
DX: Z02.83 Encounter for blood-alcohol and blood-drug test (principal)

== ENCOUNTER 2018-09-22 06:36 | Emergency (ER) | payer MEDICARE, OTHER ==
[~2018-09-22] VITALS: Ht 180.3 cm; Wt 123.8 kg
[~2018-09-22 06:36] MED LIST changes: -ALBU90OI INH; -CLARITIN10 MG PO; -DIVA500ER PO; -Keflex500 MG PO; -Prilosec Otc20 MG PO
[2018-09-22] MEDS ORDERED: CLARITIN10 MG PO (06:44)
[2018-09-22] MEDS ORDERED: Prilosec Otc20 MG PO (06:45)
[2018-09-22] MEDS ORDERED: DIVA500ER PO (06:47)
[2018-09-22] MEDS ORDERED: ALBU90OI INH (06:52)
[2018-09-22 07:12] LABS: BASOPHILS ABSOLUTE AUTO 0.05 K/mm3 (0.00-0.23); BASOPHILS PERCENT AUTO 1 % (0-2); EOSINOPHILS ABSOLUTE AUTO 0.18 K/mm3 (0.00-0.68); EOSINOPHILS PERCENT AUTO 2 % (0-6); Hematocrit 43.3 % (37.0-53.0); Hemoglobin 14.3 g/dL (13.5-17.5); IMMATURE GRAN ABSOLUTE AUTO 0.12 K/mm3 (0.00-0.10); IMMATURE GRAN PERCENT AUTO 1 % (0-1); LYMPHOCYTES ABSOLUTE AUTO 1.02 K/mm3 (0.84-5.20); LYMPHOCYTES PERCENT AUTO 11 % (21-46); MONOCYTES ABSOLUTE AUTO 0.58 K/mm3 (0.16-1.47); MONOCYTES PERCENT AUTO 7 % (4-13); Mean Corpuscular HGB 31.8 pg (26.0-34.0); Mean Corpuscular Volume 96 fL (80-100); Mean Platelet Volume 9.7 fL (9.1-12.4); NEUTROPHILS ABSOLUTE AUTO 6.97 K/mm3 (1.96-9.15); NEUTROPHILS PERCENT AUTO 78 % (41-73); Platelet Count 242 K/mm3 (150-400); RDW Coefficient Variation 12.6 % (11.7-14.2); Red Blood Cell Count 4.49 M/mm3 (4.30-5.90); White Blood Cell Count 8.92 K/mm3 (4.00-11.30)
[2018-09-22 07:35] LABS: Alanine Aminotransfer (ALT/SGP 33 U/L (12-78); Albumin, Blood 3.1 g/dL (3.4-5.0); Albumin/Globulin Ratio 0.8 (0.8-1.8); Alk Phos 108 U/L (50-136); Anion Gap 8 mmol/L (6-16); Aspartate Aminotrans (AST/SGOT 16 U/L (12-37); Bilirubin, Total 0.3 mg/dL (0.1-1.0); Blood Urea Nitrogen 19 mg/dL (8-24); Bun/Creatinine Ratio 37.9 (12.0-20.0); CO2, Blood 31 mmol/L (21-32); Calcium, Blood 8.5 mg/dL (8.5-10.1); Chloride, Blood 97 mmol/L (98-108); Globulin, Blood 4.1 g/dL (2.2-4.0); Glomerular Filtration Rate >60 (60-); Glucose, Blood 273 mg/dL (70-99); Potassium, Blood 4.8 mmol/L (3.5-5.5); Sodium, Blood 136 mmol/L (136-145); Total Protein, Blood 7.2 g/dL (6.4-8.2)
[2018-09-22] MEDS ORDERED: Keflex500 MG PO (07:48)
== END 2018-09-22 10:30 | disposition home or self-care (01) ==
LOC: ER 06:36
PROVIDERS: Emergency Medicine
DX: L03.116 Cellulitis of left lower limb (principal); E11.65 Type 2 diabetes mellitus with hyperglycemia; B20 Human immunodeficiency virus [HIV] disease; I10 Essential (primary) hypertension; F32.9 Major depressive disorder, single episode, unspecified; Z87.891 Personal history of nicotine dependence; Z79.899 Other long term (current) drug therapy; Z79.4 Long term (current) use of insulin
CPT/HCPCS: 36415; 80053; 85025; 93971; 99284-25

== ENCOUNTER → 2018-09-27 | Outpatient (CLI) | payer MEDICARE, OTHER ==
[~2018-09-27] MED LIST changes: +ALBU90OI INH; +CLARITIN10 MG PO; +DIVA500ER PO; +Keflex500 MG PO; +Prilosec Otc20 MG PO
[2018-09-27 11:16] LABS: U Amphetamine Screen Not Detected; U Barbituate Screen Not Detected; U Benzodiazapine Screen Not Detected; U Buprenorphine Screen Not Detected; U Cannabinoids Screen DETECTED; U Cocaine Screen Not Detected; U Methadone Screen Not Detected; U Methamphetamine Screen Not Detected; U Opiates Screen Not Detected; U Oxycodone Screen DETECTED; U Phencyclidine Screen Not Detected; U Propoxyphene Screen Not Detected
== END | disposition home or self-care (01) ==
LOC: LAB RH 05:20 → EDSTATUS 11:19
DX: Z51.81 Encounter for therapeutic drug level monitoring (principal); Z79.899 Other long term (current) drug therapy